=== PATIENT | female | born 1980 | race Caucasian/White ===

== ENCOUNTER 2020-02-17 10:26 | Outpatient (REF) | payer OTHER, SELFPAY | END 2020-02-17 10:27 | disposition home or self-care (01) | LOC: HO.LAB 10:26 | PROVIDERS: Visit Provider Internal Medicine | DX: Z20.828 Contact with and (suspected) exposure to other viral communicable diseases (principal) | CPT/HCPCS: 87635 ==

== ENCOUNTER 2020-04-17 13:16 | Outpatient (REF) | payer OTHER, SELFPAY ==
[2020-04-17 13:38] LABS: COVID-19 Test Negative (Negative)
== END 2020-04-17 13:17 | disposition home or self-care (01) ==
LOC: HO.EMPCOV 13:16
PROVIDERS: Visit Provider Internal Medicine
DX: Z20.828 Contact with and (suspected) exposure to other viral communicable diseases (principal)
CPT/HCPCS: 87635; C9803

== ENCOUNTER 2020-10-08 22:59 | Emergency (ER) | payer OTHER, SELFPAY ==
[2020-10-08 23:32] VITALS: BP 115/85; PULSE 112; RESP 16; TEMP 36.8; O2SAT 97; BMI 27.1
--- NOTE | 2020-10-09 01:16 | ED_ITS ---
HPI - Wound/Laceration General Chief Complaint: Wound/Laceration Stated Complaint: finger lac Time Seen by Provider: 10/08/20 23:19 Source: patient Mode of arrival: ambulatory Limitations: no limitations History of Present Illness HPI narrative: Patient got a laceration to her left thumb and ring finger by the knife while cutting squash at home no other injuries Related Data Allergies Allergy/AdvReac Type Severity Reaction Status Date / Time No Known Allergies Allergy Unverified 01/19/20 17:09 Review of Systems Review of Systems: Yes all other systems are reviewed and are negative [facility] Social History Social History Advance Directives: No Advance Directives Information Provided: No Patient : No Physical Exam Vital Signs: Vital Signs: Last Vital Signs Temp 98.2 F 10/08/20 23:32 Pulse 112 H 10/08/20 23:32 Resp 16 10/08/20 23:32 BP 115/85 10/08/20 23:32 Pulse Ox 97 10/08/20 23:32 Body Mass Index 27.1 Const: General: comfortable and no acute distress Extrem: Hand/finger images: 1. 2 cm curved laceration with flap at tip of rig ht 4th finger neurovascular intact 2. Superficial linear laceration at the tip of right thumb Procedures Laceration Laceration 1: Site: hand Side (If applicable): right (Fourth finger) Size (cm): 2 Description: flap Depth: simple, single layer Local Anesthetic: lidocaine 2% Amount of anesthesia used (mL): 1 Skin layer closed with: nylon and vicryl Size (cm): 6-0 Number of sutures: 8 Technique: simple, interrupted Laceration 2: Site: hand Side (If applicable): right (Thumb) Size (cm): 0.5 Description: linear Depth: simple, single layer Local Anesthetic: lidocaine 1% Amount of anesthesia used (mL): 0.5 Skin layer closed with: nylon Size (cm): 6-0 Number of sutures: 4 Discharge Plan Discharge Clinical Impression: Laceration Patient Disposition: Home, Self-Care Instructions: Finger Laceration (ED) Additional Instructions: Local care as advised Suture removal in 1 week Interventions: ED Discharge Assessment Last Done: 10/09/20 00:21 Discharge Date/Time: 10/09/20 00:23
== END 2020-10-09 00:23 | disposition home or self-care (01) ==
PROVIDERS: Emergency Provider Internal Medicine
DX: S61.011A Laceration without foreign body of right thumb without damage to nail, initial encounter (principal); S61.214A Laceration without foreign body of right ring finger without damage to nail, initial encounter; M79.641 Pain in right hand; W26.0XXA Contact with knife, initial encounter; Y93.G3 Activity, cooking and baking; Y92.000 Kitchen of unspecified non-institutional (private) residence as the place of occurrence of the external cause; Y99.9 Unspecified external cause status
CPT/HCPCS: 12001; 99283

== ENCOUNTER 2021-07-08 07:50 | Outpatient (REF) | payer OTHER, SELFPAY ==
[2021-07-08 08:52] LABS: COVID-19 Test Negative (Negative)
== END 2021-07-08 07:51 | disposition home or self-care (01) ==
LOC: HO.LAB 07:50
PROVIDERS: Visit Provider Internal Medicine
DX: Z20.822 Contact with and (suspected) exposure to COVID-19 (principal)
CPT/HCPCS: 87635; C9803

== ENCOUNTER 2022-02-04 13:20 | Outpatient (REF) | payer OTHER, SELFPAY ==
[2022-02-04 14:28] LABS: Troponin-I High Sensitivity < 3.5 ng/L (<3.5-17.0)
[2022-02-04 14:35] LABS: Alanine Aminotransferase 14 U/L (0-31); Albumin Level 4.2 g/dL (3.5-5.0); Alkaline Phosphatase 56 U/L (39-117); Anion Gap 13 (12-20); Aspartate Amino Transferase 16 U/L (5-31); Bilirubin Direct 0.2 mg/dL (0.0-0.5); Bilirubin Total 0.4 mg/dL (0.0-1.0); Blood Urea Nitrogen 9 mg/dL (9-16); Carbon Dioxide 28 mmol/L (22-29); Chloride 101 mmol/L (96-108); Estimated Glomerular Filt Rate > 60; Glucose Random 117 mg/dL (60-115); Lipase 21 U/L (8-78); Potassium 4.2 mmol/L (3.3-5.1); Sodium 138 mmol/L (135-145); Total Protein 6.9 g/dL (6.5-8.0)
[2022-02-04 14:44] LABS: Thyroid Stimulating Hormone 0.55 uIU/mL (0.32-4.0)
== END 2022-02-04 13:21 | disposition home or self-care (01) ==
LOC: HO.LAB 13:20
PROVIDERS: Visit Provider Hospitalist
DX: R10.9 Unspecified abdominal pain (principal)
CPT/HCPCS: 36415; 80048; 80076; 83690; 84443; 84484

== ENCOUNTER 2023-07-07 07:19 | Outpatient (REF) | payer OTHER, SELFPAY ==
[2023-07-07 07:33] LABS: MANUAL DIFF FLAG NO
[2023-07-07 07:51] LABS: Basophils Percent Auto 0.5 % (0-2); Eosinophils Absolute Auto 0.3 X10*3/uL (0.0-0.4); Hematocrit 42.2 % (37.0-47.0); Hemoglobin 14.8 g/dl (12.0-16.0); Imm Gran Abs Auto 0.02 X10*3/uL (0.00-0.03); Imm Gran Pct Auto 0.3 % (0.0-0.4); Lymphocytes Percent Auto 15.2 % (20-40); Mean Corpuscular HGB Conc 35.1 g/dl (31.0-35.0); Mean Corpuscular Hemoglobin 31.4 pg (27.0-33.0); Mean Corpuscular Volume 89.4 fL (80.0-98.0); Mean Platelet Volume 9.9 fL (9.4-12.3); Monocytes Absolute Auto 0.4 X10*3/uL (0.1-1.2); Monocytes Percent Auto 5.5 % (2-11); Neutrophils Absolute Auto 4.9 x10*3/uL (2.0-8.3); Neutrophils Percent Auto 74.5 % (45-73); Platelet Count 209 X10*3/uL (160-400); Red Blood Count 4.72 X10*6/uL (4.20-5.50); Red Cell Distribution Width 11.9 % (11.0-16.0); White Blood Count 6.5 X10*3/uL (4.8-10.8)
[2023-07-07 08:05] LABS: Estimated Average Glucose 97 mg/dL
[2023-07-07 08:17] LABS: Alanine Aminotransferase 16 U/L (0-31); Albumin Level 4.3 g/dL (3.5-5.0); Alkaline Phosphatase 53 U/L (39-117); Anion Gap 10 (12-20); Aspartate Amino Transferase 18 U/L (5-31); Bilirubin Total 0.6 mg/dL (0.0-1.0); Blood Urea Nitrogen 8 mg/dL (9-16); Calcium 9.8 mg/dL (8.4-10.2); Carbon Dioxide 26 mmol/L (22-29); Chloride 107 mmol/L (96-108); Estimated Glomerular Filt Rate > 60; Glucose Random 95 mg/dL (60-115); Iron 149 mcg/dL (30-160); Magnesium 2.1 mg/dL (1.6-2.6); Percent Iron Saturation 50 % (15-50); Potassium 4.3 mmol/L (3.3-5.1); Sodium 139 mmol/L (135-145); Total Iron Binding Capacity 300 mcg/dL (228-428); Total Protein 7.4 g/dL (6.5-8.0); Unsaturated Iron Binding 151 ug/dL
[2023-07-07 08:26] LABS: Cortisol Random 14.4 ug/dL
[2023-07-07 08:27] LABS: Thyroid Stimulating Hormone 1.04 uIU/mL (0.32-4.0); Vitamin D 25-OH Total 9.1 ng/mL (>30)
== END 2023-07-07 07:20 | disposition home or self-care (01) ==
LOC: HO.LAB 07:19
PROVIDERS: PCP Internal Medicine; Visit Provider Hospitalist
DX: Z00.00 Encounter for general adult medical examination without abnormal findings (principal)
CPT/HCPCS: 36415; 80053; 82306; 82533; 83036; 83540; 83735; 84443; 85025

== ENCOUNTER 2023-09-22 10:17 | Outpatient (REF) | payer OTHER, SELFPAY ==
--- NOTE | ~2023-09-22 | XR_ITS ---
EXAMINATION: XR CHEST CLINICAL INFORMATION: Cough COMPARISON: 11/24/2012 TECHNIQUE: 2 views of the chest were obtained. FINDINGS: No significant abnormality is noted involving the heart, lungs, mediastinum, or soft tissues. Pectus excavatum again noted. XR/XR chest 2V IMPRESSION: No acute cardiopulmonary disease or interval change
== END 2023-09-22 10:18 | disposition home or self-care (01) ==
LOC: HO.XRAY 10:17
PROVIDERS: Visit Provider Internal Medicine
DX: R05.9 Cough, unspecified (principal)
CPT/HCPCS: 71046

== ENCOUNTER 2025-02-27 11:55 | Outpatient (REF) | payer OTHER, SELFPAY ==
--- NOTE | ~2025-02-27 | XR_ITS ---
EXAMINATION: XR CHEST CLINICAL INFORMATION: COUGH COMPARISON: September 22, 2023 TECHNIQUE: 2 views of the chest were obtained. FINDINGS: No significant abnormality is noted involving the heart, lungs, mediastinum, or soft tissues. Again noted is pectus excavatum. XR/XR chest 2V IMPRESSION: Unremarkable examination. Electronically signed by: Demario Holland MD 02/27/2025 12:15 PM EDT
--- OUTSIDE RECORDS SUMMARY | 2025-02-27 15:22 | XMS_ITS | Clinical Summary ---
Author Organization [facility] Address [address] [address] Phone Care Team Providers Care Cilnical Scientist Name Role Phone Stephen Weber MD Primary Care Provider [phone] Allergies No known active allergies Medications citalopram (CELEXA) 20 MG tablet Take 1 tablet by mouth daily. Active cholecalciferol (VITAMIN D3) 2,000 unit capsule Take 1 capsule (2,000 Units total) by mouth daily. 90 capsule 3 07/23/2023 Active ALPRAZolam (XANAX) 0.5 MG tabletIndicatio ns:Anxiety Take 1 tablet (0.5 mg total) by mouth daily as needed. 10 tablet 07/23/2023 Active Active Problems Problem Noted Date Diagnosed Date Vitamin D deficiency 07/23/2023 Overview (07/23/2023): Now on VItD 50K weekly. Other melanin hyperpigmentation 12/08/2019 Assessment & Plan (12/08/2019 10:55 AM EDT): Pt unhappy with hyperpigmentation of her skin medial thighs to inguinal folds. Has used hydroquinone cream bid in the past with good results and would like to resume. Skin is otherwise not causing pt any sx. Family history of breast cancer 12/08/2019 Overview (01/09/2021): Mother dx 2019 age 60 Stage 0. Assessment & Plan (12/08/2019 10:59 AM EDT): Pt desires BRCA testing. Discussed making appt at [facility] breast center for genetic counseling. Pt has mammo's through [facility] and mother had breast ca treatment there. May consider appt together with mother to review risks and testing options. Tobacco dependence 12/02/2019 Overview (05/10/2021): The patient was counseled regarding tobacco cessation strategies. Medication management was also discussed, as well as risks of continued use. Try lozenges again, consider hypnosis May 2021: has cut down a lot, counselled for 4 min Assessment & Plan (07/23/2023 11:03 AM EDT): Working on cutting down still Assessment & Plan (01/02/2023 2:46 PM EDT): 1/2 ppd Declines rx or referral Assessment & Plan (08/21/2022 10:11 AM EDT): Plans to stop, declines rx. Stopping will help her HR issues Assessment & Plan (08/14/2022 2:00 PM EDT): Interested in quitting, plans to stop as she is anxious about using medication to help. Thinks she will quit sometime in the next year. Hyperhidrosis 12/02/2019 Overview (12/02/2019): Since childhood, face, hands, feet Mixed hyperlipidemia 12/02/2019 Overview (12/02/2019): LDL 135-150 Tachycardia 08/05/2018 Overview (05/10/2021): chronic tachycardia, had evaluation with Echo, holter, TSH at [facility] [around 2004] May 2021: Sx worsening, recheck 48 hr holter. History of measles vaccination 08/05/2018 Overview (08/05/2018): Did not generate antibodies, recheck Anxiety 07/30/2017 Overview (07/23/2023): Stable on celexa. Only needs xanax once every week or two. May 2021: Increase to 30mg celexa, trying to find a therapist. July 2023: back no Celexa, has prn xanax. Sees a psychiatrist next week. Sx are bad at the moment Assessment & Plan (01/02/2023 2:42 PM EDT): weaned off her celexa again, 'it was horrible'. Now doing ok Anxiety is still there, but mild. No major panic attacks. Stopped seeing her therapist. Has insomnia, some restless leg sx. Resolved Problems Problem Noted Date Diagnosed Date Resolved Date Alcohol consumption heavy 05/10/2021 Overview (05/10/2021): May 2021: was up to 9-12 beers a night, now abstinent for 2 wks. rec'd therapy. Offered Naltrexone, she declines for now. Assessment & Plan (08/14/2022 1:59 PM EDT): Abstinent x2 months. Very happy with related changes. Feels positive and proud. Abnormal uterine bleeding 01/10/2021 Assessment & Plan (01/10/2021 10:30 AM EDT): Pt having increased staining and bleeding in week before menses 3-7 days. Pt states she had this years ago and it spontaneously resolved. Has been occurring over last 3-6 mos. Pt to monitor sx and f/u in 3mos. D/w pt use of ocp may be helpful for this BTB. If bleeding is more sporadic and unpredictable and ultrasound may be warranted. PCB (post coital bleeding) 12/08/2019 0 08/14/2022 Assessment & Plan (01/10/2021 10:30 AM EDT): Cervix appears cystic. There are no areas of friability. May be associated with position and depth of penetration. Patient to monitor if associated premenstrually with BTB. Assessment & Plan (12/08/2019 10:57 AM EDT): Exam of vag and cx normal. No areas of friability. Only assoc with one sex position and deep penetration. Suggested if staining bothersome to her she may need to avoid that position. Immunizations Immunization Administration Dates Next Due COVID-19 (Pre-02/23) Pfizer Vaccine, mRNA, PF 05/18/2020,04/24/2020 INFLUENZA, SPLIT VIRUS, TRIV ALENT W/ PRESERVATIVE IM 03/24/2016 Influenza Quadrivalent Prese rvative Free IM 04/09/2022,02/05/2021,01/31/2020,2018,02/23/2018 Influenza Quadrivalent w/ Preservative IM 02/02/2018,02/16/2017 Td (adult),2 Lf Tetanus Toxo id, PF, Adsorbed 08/06/2011 Family History Medical History Relation Comments Asthma Brother No Known Problems Father doesn't know h is health hx Breast cancer Maternal Aunt doing well. Parkinson's disease Maternal Grandmother Breast cancer Mother 2018 - doing wel l at 5yrs out. Stage 0. Fibroids Mother had hyst Asthma Sister Asperger's syndrome Son 1 high functio carlos. Colon cancer Neg Hx Relation Status Comments Brother Alive Daughter 1 Alive Daughter 2 Alive Daughter 3 Alive Father Alive Maternal Aunt Alive Maternal Grandfather Alive Maternal Grandmother Mother Alive Sister Alive Son 1 Alive Son 2 Alive Social History Tobacco Use Types Packs/Day Years Used Date Smoking Tobacco: Every Day Cigarettes 0.5 30 Started: 08/05/2010 Smokeless Tobacco: Never Tobacco Cessation:Ready to Q uit: Not Asked; Counseling Given: Not Answered Alcohol Use Standard Drinks/Week Comments Not Currently 0 (1 standard drink = 0.6 oz pur e alcohol) Occasionally Child or Family Care Answer Date Record ed Do you have problems with on e of the following making it difficult for you to work, study, or receive health care? No 01/01/2023 Education Answer Date Recorded Are you interested in more education? Not on christel e 01/02/2025 Are you concerned about learning? Not on file 01/02/2025 No 01/02/2025 No 01/02/2025 Food Answer Date Recorded Within the past 6 months we worried whether our food would run out before we got money to buy more. Never True 01/01/2023 Within the past 6 months the food we bought just didn't last and we didn't have enough money to get more. Never True Residential Stability Answer Date Recor ded What is your housing situation today? I have lawrence mcnally 01/01/2023 How many times have you move d in the past 12 months? Zero (I did not move) 01/01/2023 Paying for Meds Answer Date Recorded Do you have trouble paying for medicines? No 01/01/2023 Paying Utility Bills Answer Date Record ed Do you have trouble paying your heating or elect ricity bill? No 01/01/2023 Transportation Answer Date Recorded Has the lack of transportati on kept you from medical appointments or from getting medications? No 01/01/2023 Unemployment Answer Date Recorded Are you currently unemployed or working on a part-time or temporary basis, and looking for work? No 01/01/2023 Digital Access Answer Date Recorded No 01/02/2025 No 01/02/2025 Reliable internet access at home? Not on file 01/02/2025 Device with a working camera? Not on file Intimate Partner Violence Answer Date R ecorded Denied Basic Needs Not on file 01/01/2023 In the past 12 months have y ou been in a relationship with a person who hurts, threatens, or tries to control you? No 01/01/2023 Worried food would run out Not on file 01/01 In the past 12 months have y ou been in a relationship with a person who hurts, threatens, or tries to control you? No 01/01/2023 Education Answer Date Recorded What is the highest level of school you have completed or the highest degree you have received? 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 file Not on file Not on fi le Last Filed Vital Signs Vital Sign Reading Time Taken Comments Blood Pressure 116/70 07/23/2023 10:29 AM EDT Pulse 111 07/23/2023 10:29 AM EDT Temperature 36.3 C (97.4 F) 07/23/2023 10:29 AM EDT Respiratory Rate - - Oxygen Saturation 99% 07/23/2023 10:29 AM EDT Inhaled Oxygen Concentration - - Weight 68.9 kg (152 lb) 07/23/2023 10:29 AM EDT Height 162.6 cm (5' 4.02 ) 07/23/2023 10:29 AM E DT Body Mass Index 26.07 07/23/2023 10:29 AM EDT Plan of Treatment Upcoming Encounters Date Type Department Care Team (Late st Contact Info) Description 06/23/2025 11:00 AM EST Office Visit [facility] [address] [place] [address] [place] [address] Stephen Weber MD [address] [facility], [address] [place] [address] [email or web address] Health Maintenance Due Date Last Done Comments SMOKING Hx and SMOKELESS TOBACCO SCREENING 07/12/1992 PNEUMOCOCCAL VACCINES (0-49 years) (1 of 2 - PCV) 07/12/1998 Adult Td,Tdap Booster 08/05/2021 08/06/2011 PAP SMEAR 08/12/2023 08/11/2018, 08/02, 11/08/2012, Additional history exists DEPRESSION SCREENING 01/02/2024 01/01/2023 COLOGUARD 07/12/2024 COLONOSCOPY 07/12/2024 COLORECTAL CANCER SCREENING 07/12/2024 FIT TEST 07/12/2024 FOBT 07/12/2024 SIGMOIDOSCOPY 07/12/2024 VIRTUAL COLONOSCOPY 07/12/2024 INFLUENZA VACCINE (#1) 2024 2, 02/05/2021, 01/31/2020, Additional history exists COVID-19 VACCINE ( - season) 2025 05/18/2020, 04/24/2020 MAMMOGRAM 05/03/2025 05/03/2024, 04/04, 02/28/2022, Additional history exists SCREENING FOR DIABETES 01/01/2026 01/01/2023, 2022 LIPID PANEL 01/02/2028 01/01/2023, 01/2021, 12/02/2019, Additional history exists HEPATITIS C SCREENING Completed 01/10/2021 HIV ONE-TIME SCREENING (18-65 YEARS) Completed 01/10/2021 HEPATITIS A VACCINES Aged Out No long er eligible based on patient's age to complete this topic HIB VACCINES Aged Out No longer eligi ble based on patient's age to complete this topic MENINGOCOCCAL VACCINES (ACWY) Aged Out No longer eligible based on patient's age to complete this topic MENINGOCOCCAL VACCINES (B) Aged Out N o longer eligible based on patient's age to complete this topic Medical Devices Not on file Procedures Procedure Name Priority Date/Time Associated Diagnosis Comments MAMMOGRAPHY Routine 05/03/2024 4:15 PM EST LIPID PANEL Routine 01/01/2023 10:17 AM EDT Annual physical exam HEPATITIS C ANTIBODY, QUALITATIVE Routine 01/10/2021 9:36 AM EDT Need for hepatitis C screening test PAP TEST Routine 08/11/2018 12:00 AM EDT from Last 3 Months or Most Recently Relevant to Health Maintenance Results * MAMMOGRAPHY FOR RESULT ENTRY ONLY (05/03/2024 4:15 PM EST) us Stephen Weber MD HEALTH MAINTENANCE Edited Resul t - Final * (ABNORMAL) Lipid panel (01/01/2023 10:17 AM EDT) HDL 45 mg/dL [facility] Comment: Interpretation <40 mg/dL: Low HDL cholesterol (major risk factor for CHD) Greater than or equal to 60 mg/dL: High HDL cholesterol ( negative risk factor for CHD) HDL - cholesterol is affected by a number of factors, e.g. smoking, excerise, hormones, sex and age. CHOLESTEROL 199 0 - 240 mg/dL [facility] TRIGLYCERIDES 164(H) 30 - 160 mg/dL [facility] LDL 121 50 - 129 mg/dL [facility] Comment: LDL levels in terms of risk for coronary heart disease: <100 mg/dL: Optimal 100-129 mg/dL: Near or above optimal 130-159 mg/dL: Borderline high 160-189 mg/dL: High >190 mg/dL: Very High CARDIAC RISK RATIO 4.4 3.3 - 4.4 C [facility] Blood 01/01/2023 10:1 7 AM EDT 01/01/2023 10:24 AM EDT us Stephen Weber MD LAB BLOOD ORDERABLES Final Resu lt Performing Organization Address [facility] Co de Phone Number [address] [address] * Hepatitis C antibody, qualitative (01/10/2021 9:36 AM EDT) HCV NON-REACTIV E NON-REACTI VE [facility] Blood 01/10/2021 9:36 AM EDT 01/10/2021 9:38 AM EDT us Stephen Weber MD LAB BLOOD ORDERABLES Final Resu lt Performing Organization Address [facility] Co de Phone Number [address] [address] * Pap Smear (08/11/2018 12:00 AM EDT) 08/11/2018 08/12/2018 12: 46 PM EDT Narrative SEE NARRATIVE - 08/19/2018 2:17 PM EDT [address] [address] Experimental Preflight Mechanic: Nara Truong MD MENTAL HEALTH ASSISTANT Cytology Report FINAL DIAGNOSIS A. PAP SMEAR (SUREPATH) CE: SPECIMEN ADEQUACY: Satisfactory for evaluation; transformation zone present. INTERPRETATION: NEGATIVE FOR INTRAEPITHELIAL LESION OR MALIGNANCY. Reactive changes. Electronically Signed Out By: FRANKLYN Avina MD(ASCP) By his/her signature above, the pathologist listed as making the Final Diagnosis certifies that he/she has personally reviewed this case and confirmed or corrected the diagnosis. The Pap test is a screening test primarily for squamous cancers and precursors and has associated false-negative and false-positive results. New technologies such as liquid-based preparations may decrease but will not eliminate all false-negative results. Regular sampling and follow-up of unexplained clinical signs and symptoms are recommended to minimize false negative results. PROCEDURES/ADDENDA HPV Testing (Requested) Ordered Date: 08/12/2018 HPV Test Negative for high-risk human papillomavirus types 16, 18, 45 and the Other high risk probe set (Includes 31, 33, 35, 39, 51, 52, 56, 58, 59, 66, 68) by WSO2 Onclarity HR-HPV analysis. Clinical correlation is advised. This HPV test was performed at [facility], [address] [place] [address]. This test has been FDA approved for [facility] cervical cytology specimens. The accuracy and precision of this test for all other specimen sources has been verified in the Cytopathology Laboratory of the [facility] and has not been cleared or approved by the U.S. Food and Drug Administration. Clinical correlation is advised. CLINICAL HISTORY Date of Last Menstrual Period: 08/05/2018 Other Clinical Conditions: Screening Pap SPECIMEN SOURCE A: PAP SMEAR (SUREPATH) CE Patient Name: TSERING ABBOTT : 1980 (Age: 38) Sex: F Institution: [facility] Location: [facility] Date of Collection: 08/11/2018 Date of Reported: 08/19/2018 14:17 Results to: Vanessa Vu MD Vanessa Vu MD CYTOLOGY ORDERABLES Final Result SEE NARRATIVE from Last 3 Months or Most Recently Relevant to Health Maintenance Insurance [facility] [address] [address] [id number] [employer] [address] [address] [address] [place] [address] [employer] [place] [id number] [place] [address] [facility] [employer] [address] [place] [address] [facility] [employer] [place] [id number] [place] [address] [facility] [employer] [facility] [employer] [place] [employer] Care Teams Cilnical Scientist Relationship Specialty Start Date End Date Stephen Weber MD [address] [place] [address], [address] [place] [address] [email or web address] PCP - General Internal Medicine 07/27/18 Additional Source Comments The information contained in this document represents components of the legal health record. It is not the complete legal health record.[facility]
[2025-02-27 15:41] LABS: MANUAL DIFF FLAG NO
[2025-02-27 15:56] LABS: Hematocrit 40.1 % (37.0-47.0); Hemoglobin 13.7 g/dl (12.0-16.0); Imm Gran Abs Auto 0.02 X10*3/uL (0.00-0.03); Imm Gran Pct Auto 0.3 % (0.0-0.4); Lymphocytes Absolute Auto 1.2 X10*3/uL (1.2-4.9); Mean Corpuscular HGB Conc 34.2 g/dl (31.0-35.0); Mean Corpuscular Hemoglobin 31.9 pg (27.0-33.0); Mean Corpuscular Volume 93.3 fL (80.0-98.0); NRBC Abs Auto 0.000 X10*3/uL (0.0-0.012); NRBC Pct Auto 0.0 /100WBC (0.0-0.2); Platelet Count 248 X10*3/uL (160-400); Red Blood Count 4.30 X10*6/uL (4.20-5.50); White Blood Count 7.8 X10*3/uL (4.8-10.8)
[2025-02-27 16:23] LABS: Alanine Aminotransferase 39 U/L (0-31); Albumin Level 4.6 g/dL (3.5-5.0); Alkaline Phosphatase 63 U/L (39-117); Anion Gap 13 (12-20); Aspartate Amino Transferase 33 U/L (5-31); Blood Urea Nitrogen 13 mg/dL (9-16); Calcium 9.4 mg/dL (8.4-10.2); Carbon Dioxide 27 mmol/L (22-29); Chloride 105 mmol/L (96-108); Estimated Glomerular Filt Rate > 60; Potassium 4.4 mmol/L (3.3-5.1); Sodium 141 mmol/L (135-145); Total Protein 7.6 g/dL (6.5-8.0)
== END 2025-02-27 11:56 | disposition home or self-care (01) ==
LOC: HO.XRAY 11:55
PROVIDERS: PCP Internal Medicine; Visit Provider Internal Medicine
DX: R05.9 Cough, unspecified (principal)
CPT/HCPCS: 36415; 71046; 80053; 82248; 85025

== ENCOUNTER → 2025-02-27 12:01 | Outpatient (BNV) | payer OTHER, SELFPAY | PROVIDERS: PCP Internal Medicine; Visit Provider Radiology Diagnostic Radiology | DX: R05.9 Cough, unspecified (principal) | CPT/HCPCS: 71046 ==

== ENCOUNTER 2025-04-29 17:25 | Emergency (ER) | payer OTHER, SELFPAY ==
--- NOTE | ~2025-04-29 | CT_ITS ---
CLINICAL HISTORY: back pain --- Additional Notes or Special Instructions: Pay attention to lumbar spine CT abdomen and pelvis without contrast Comparison: None provided Findings: No consolidation or effusion. Unremarkable gallbladder and solid organs. No urolithiasis. No bowel obstruction, pneumoperitoneum, or pneumatosis. Pelvic contents unremarkable. Normal appendix. The bones are intact. Paragraph of the cervix demonstrates left of midline heterogeneous low-attenuation lesion, 0.9 cm; probable nabothian cyst. L5-S1: Grade 1 retrolisthesis of L5 over S1. Broad-based disc bulge impinging of the S1 nerve roots, axial image number 456 of 747 series 4 with minimal central canal stenosis and no significant neural foraminal stenosis. IMPRESSION: No acute findings. This document has been electronically signed by: Jacob Carreon MD on 04/29/2025 19:21:19
[2025-04-29 17:28] VITALS: BP 155/88; PULSE 107; RESP 18; TEMP 36.8; O2SAT 99; BMI 30.6
--- NOTE | 2025-04-29 17:50 | ED.GENADULT ---
HPI - General Adult General Chief complaint: Back Pain/Injury Stated complaint: Back pain Time Seen by Provider: 04/29/25 17:48 Source: patient Mode of arrival: ambulatory Limitations: no limitations History of Present Illness ED Provider: Dr. Lazo [facility] narrative: 44-year-old female no significant medical history presented hospital today for back pain for the past 2 weeks. It is atraumatic in nature. Described as a bilateral back pain that radiates down to her left thigh. Denies any urinary retention no bowel incontinence. No saddle paresthesia. Denies any traumatic injuries. No abdominal pain. Related Data Previous Rx's ?Medication ?Instructions ?Recorded acetaminophen 500 mg tablet 1,000 mg (2 x 500 mg) PO Q8H 10 04/29/25 days #60 tabs cyclobenzaprine 5 mg tablet 5 mg PO TID PRN muscle spasm #21 04/29/25 tabs methylprednisolone 4 mg tablets in 4 mg PO PER PKG DIR #21 ea 04/29/25 a dose pack (Medrol (Naun)) Allergies Allergy/AdvReac Type Severity Reaction Status Date / Time No Known Allergies Allergy Verified 04/29/25 17:31 Review of Systems Review of Systems: Pertinent review of systems as mentioned in HPI. All other system otherwise negative. [facility] Past Medical History [facility] Narrative: None Social History Social History Advance Directives: No Advance Directives Information Provided: No Do you have a plan to hurt others: No Plan Physical Exam ED Exam Exam: General: Pleasant, no distress, interacting appropriately Head: Normacephalic, atraumatic ENT: oral mucosa moist, neck supple, no tracheal deviation Extremities: No tenderness on internal rotation of bilateral hips, palpable pulse and dorsal pedis bilaterally, CMS intact bilaterally, she has bilateral tenderness on the lower spine Neurological: Awake and alert, no facial droop noted Skin: Warm and dry Psychiatric: Appropriate mood and thoughts Vital Signs: Vital Signs - 24 hr 04/29/25 17:28 04/29/25 19:10 Temperature 98.2 F 98.2 F Pulse Rate 107 H 107 H Respiratory Rate 18 18 Blood Pressure 155/88 H 155/88 H Pulse Oximetry 99 99 Oxygen Delivery Method Room Air Room Air BMI result Body Mass Index 30.6 Medications Administered Discontinued Medications Generic Name Dose Route Start Last Admin Trade Name Freq PRN Reason Stop Dose Admin Ibuprofen 800 mg 04/29/25 17:49 04/29/25 18:19 Ibuprofen 800 Mg Tablet PO 04/29/25 17:50 800 mg ONCE ONE Administration Medical Decision Making Medical Decision Making [facility] Narrative: 44-year-old female presented hospital today for 2 weeks of lower back pain. No red flag symptoms. We will obtain a CT imaging. Discussed the patient about her workup. She will prefer to started ibuprofen 1st for pain control. She has been taking ibuprofen and NSAIDs for pain control. With minimal relief. Her pain is improved when she stands up worsened when she sits down. I suspect lumbar radiculopathy versus muscular strain of the lumbar spine. The patient positioned on comfort is forward flexion of the lumbar spine it is more painful when she rotates her spine. Patient's condition is requesting to go home at this time. CT imaging is still pending. We will plan to discharge patient with a Medrol Dosepak, cyclobenzaprine and referral to physical therapy. Discuss patient about CT results. Patient will plan to follow up in clinic. Differential Diagnosis Differential Diagnoses: The differential diagnosis associated with the presentation includes Lumbar radiculopathy, lumbar strain, thoracic strain Lab Data [facility] Lab Attestation statement: I reviewed the patient's lab results. Labs: Lab Results 04/29/25 Range/Units 18:18 Urine Test NEGATIVE (NEGATIVE) Independent Interpretation I performed an independent interpretation of an: CT Scan Discharge Plan Discharge Clinical Impression: Low back pain Qualifiers: Chronicity: acute Back pain laterality: bilateral Sciatica presence: without sciatica Qualified Code(s): M54.50 - Low back pain, unspecified Patient Disposition: Home, Self-Care Instructions: Acute Low Back Pain (ED), Lower Back Exercises (ED) Additional Instructions: You may take 1000mg tylenol every 8 hours, take the cyclobenzaprine as needed. Follow instruction on the medrol dose back. I gave you referral to physical therapy that you can follow up with. You may use warm compression and stretch when possible. Avoid any further strenuous movements. Prescriptions: New methylprednisolone [Medrol (Naun)] 4 mg tablets,dose pack 4 mg PO PER PKG DIR Qty: 21 0RF acetaminophen 500 mg tablet 1,000 mg PO Q8H 10 Days Qty: 60 0RF cyclobenzaprine 5 mg tablet 5 mg PO TID PRN (Reason: muscle spasm) Qty: 21 0RF Referrals: Physical Therapy - [facility] [Outside] Interventions: ED Discharge Assessment Last Done: 04/29/25 19:10 Discharge Date/Time: 04/29/25 19:10 Print Language: Korean
--- OUTSIDE RECORDS SUMMARY | 2025-04-29 17:59 | XMS_ITS | Data Portability ---
Author Organization [facility], Main Office Address [address] [facility] [address] [place] [address] Care Team Providers Care Mechanical Engineering Lecturer Name Role Phone KENRICK ORTIZ Primary Care Provider [facility] Integrity Consultant [facility] OTHER Assessment No assessment recorded. Plan of Treatment Reminders Order Date Submit Date Provider Last Modified By Organization Details Last Modified Time Details Appointments None record ed. Lab None record ed. Referral None record ed. Procedures None record ed. Surgeries None record ed. Imaging None record ed. Medication Orders None record ed. Patient TargetsNo targets recorded. Patient Instructions Encounter Date Encounter Id Patient Instructions Last Modified By Organization Details Last Modified Time 07/29/2017 [id number] Medications (OTC, herbal therapies, supplements) reviewed and reconciled with patient and or caregiver, including potential side effects, drug interactions, instructions, and the consequences of not taking medication. Reviewed potential barriers to medication adherence, such as side effects from medication or cost of medication. [email or web address] Not available 07/30/2017 06:48:45 Reason for Referral None Reported. Problems Name Problem SNOMED Code Status Onset Date Resolution Date Notes Provider Name and Address Organization Details Recorded Time Anxiety 58872454 Active 018 Kenrick Ortiz MD [address], [place], [address] , [facility] 07/30/2017 06:47:37 Problem Notes None recorded. Procedures Surgical History Date Name Laterality Status Provider Name and Address Organization Details Recorded Time 2 delivery completed Beau Hong [facility] 07/29/2017 13:38:28 Imaging Results None recorded. Procedure Notes None recorded. Medical Equipment None Reported. Allergies No known drug allergies Medications Name Sig Start Date Stop Date Status Note LastModified by Organization Details LastModified Time metronidazol e 0.75 % (37.5 mg/5 gram) vaginal gel active Not Available Not Available Not Available sulfamethoxa zole 800 mg-trimethop rim 160 mg tablet 07/29 completed Not Available Not Available Not Available alprazolam 0.5 mg tablet 1 as needed for anxiety with a max 3 per week active Not Available Not Available No t Available citalopram 20 mg tablet TAKE 1 TABLET BY MOUTH EVERY DAY active Not Available Not Available No t Available amoxicillin 875 mg-potassium clavulanate 125 mg tablet active Not Available Not Available Not Available Vitals Date Recorded Body weight Body mass index (BMI) Body height Heart rate Oxygen saturation Body temperature Systolic And Diastolic Provider Name and Address Organization Details Last Updated DateTime 8 32647.3 g 25.3 kg/m2 160.66 cm 86 /min 97 % 97.6 [degF] 116/70 mm[Hg] Beau Hong [facility] 8 13:34:30 Social History Question Answer Notes LastModified by Organizat ion Details LastModified Time Tobacco Smoking Status [facility]2017 13:37:09 Do You Have An Advance Directive? No [employer] Information not available 07/29/2017 Is Blood Transfusion Acceptable In An Emergency? Yes [facility] - [facility] [employer] Cases Liveabhijeet Information not available 07/29/2017 What Is Your Level Of Caffeine Consumption? Occasional [employer] Automationleisa Information not available 07/29/2017 How Much Tobacco Do You Chew? None CLK Design AutomationherbUrban Gentleman Information not available 07/29/2017 What Type Of Diet Are You Following? REGULAR [employer] Automationleisa Information not available 07/29/2017 Which Illicit Or Recreational Drugs Have You Used? None [employer] AutomationherbUrban Gentleman Information not available 07/29/2017 Live Alone Or With Others? With Others And 5 Children Born Between 1996 And 2011 [email or web address] Information not available 07/29/2017 Do You Take Precautions To Prevent Distracted Driving? Yes Essential Testingmadalyn Information not available 07/29/2017 How Often Do You Need To Have Someone Help You When You Read Instructions, Pamphlets, Or Other Written Material From Your Doctor Or Pharmacy? Never [employer] Information not available 07/29/2017 Have You Served In The ? No [employer] Information not available 07/29/2017 What Was The Date Of Your Most Recent Tobacco Screening? 07/29/2017 Information not available 11/25/2018 How Many Children Do You Have? 5 Essential TestingultzUrban Gentleman Information not available 07/29/2017 Do You Use Protection During Sex? No Essential Testingultzki Information not available 07/29/2017 Seat Belts Used Routinely Yes Essential TestingultGanymed Pharmaceuticals Information not available 07/29/2017 Are You Sexually Active? Yes [employer] Information not available 07/29/2017 Smoke Alarm In Home Yes [employer] Information not available 07/29/2017 At What Age Did You Start Smoking Tobacco? 12 Essential TestingultzUrban Gentleman Information not available 07/29/2017 Are You Passively Exposed To Smoke? Yes CLK [employer] AutomationzUrban Gentleman Information not available 07/29/2017 How Much Tobacco Do You Smoke? 0.25 PPD ksEmerge DiagnosticsultGanymed Pharmaceuticals Information not available 07/29/2017 Do You Use Sunscreen Routinely? Yes [employer] Information not available 07/29/2017 How Many Years Have You Smoked Tobacco? 12 Essential TestingultGanymed Pharmaceuticals Information not available 07/29/2017 Sex: Unknown Functional Status Question Answer Note LastModified by Organizat ion Details LastModified Time What is your level of alcohol consumption? Occasional Essential TestingultGanymed Pharmaceuticals Information not available 07/29/2017 Are you currently employed? Yes [employer] Information not available 07/29/2017 Are you able to care for yourself independently ? 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 Moderate [employer] Information not available 07/29/2017 Mental Status None recorded. Family History Relationship Description Onset Age of this Age Resolved Age Notes LastModified by Organization Details LastModified Time Mother Malignant neoplasm of breast 59 [email or web address] Not available 07/03 14:06:06 Maternal Grandfather Carcinoma of prostate [email or web address] Not available 07/03 14:06:48 Medical History No medical history recorded. Gynecological History Statement/Question Response Date of Last Pap Smear Obstetrics History GPAL:G 0 P 0 0 0 0 Past Encounters Encounter ID Performer Location Encounter Start Date Encounter Closed Date Diagnosis/Indication Diagnosis SNOMED-CT Code Diagnosis ICD10 Code Diagnosis IMO Codes Diagnosis Note [id number] Kenrick Ortiz MD Main Office [address] [phone] 07/29/2017 13:26:46 07/29/2017 14:24:55 Adult health examination 944299884 Z00.00 She will bring in documentat Departing for her Tdap. 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 Anxiety 10487049 F41.9 Continue current mgmt of citalopram daily and prn alprazolam . She is trying to wean off the alprazolam . Health Concerns Section Related Observation LastModified by Organization Detai ls LastModified Time None Recorded Concern Status LastModified by Organization Details LastModified Time None Recorded Advance Directives Directive N: Payers Insurance Date Sequence Insurance Name Policy Number Policy Del Cid Covered Member ID Del Cid Member ID Guarantor Name 08/05/2017 1 [facility] (PPO) [id number] Rupali Abbott [id number] Rupali Abbott Notes Date Note Type Note Provider Name and Address Organization Details Recorded Time 07/29/2017 text/html New patient transferring from Dr Jones. Only medical issue is anxiety which is being treated with citalopram daily and alprazolam when needed. Kenrick Ortiz MD [address] [address], [place], [address], [facility] 07/30/2017 07:02:53 OBGyn Episode No OBEpisode recorded.
--- OUTSIDE RECORDS SUMMARY | 2025-04-29 17:59 | XMS_ITS | Clinical Summary ---
Author Organization [facility] Address [address] [address] Phone Care Team Providers Care Newspaper Journalist Name Role Phone Stephen Weber MD Primary Care Provider [phone] Allergies No known active allergies Medications citalopram [...] desires BRCA testing. Discussed making appt at [facility] breast center for genetic counseling. Pt has mammo's through [facility] and mother had breast ca treatment there. [...] had evaluation with Echo, holter, TSH at [facility] [around 2004] May 2021: Sx worsening, recheck [...] she may need to avoid that position. Encounters Date Type Department Care Team Description 02/28/2025 Orders Only [facility] [address] [place] [address] Unknown, Unknown, from Last 3 Months Immunizations Immunization Administration Dates Next Due COVID-19 [...] your housing situation today? I have lawrence sing 01/01/2023 How many times have you move [...] Master's degree (e.g., MA, MS, Randa, MEd, DECISION SUPPORT ANALYST, DAGOBERTO) 08/11/2018 Comments No Sex and Gender [...] Description 06/23/2025 11:00 AM EST Office Visit [facility] [address] [place] [address] Stephen Weber MD [address] [place] [address], [address] [place], [place] [id number] [email or web address] Health Maintenance Due Date Last Done Comments [...] 01/31/2020, Additional history exists COVID-19 VACCINE ( season) 2025 05/18/2020, 04/24/2020 MAMMOGRAM 05/03/2025 05/03/2024, [...] Procedure Name Priority Date/Time Associated Diagnosis Comments OUTSIDE XR CHEST REPORT ONLY Routine 02/27/2025 11:58 AM EDT HM MAMMOGRAPHY Routine 05/03/2024 4:15 PM EST LIPID PANEL Routine 01/01/2023 10:17 AM EDT Annual physical exam HEPATITIS C ANTIBODY, QUALITATIVE Routine 01/10/2021 9:36 AM EDT Need for hepatitis C screening test PAP TEST Routine 08/11/2018 12:00 AM EDT from Last 3 Months or Most Recently Relevant to Health Maintenance Results * Outside XR??Chest Report Only (02/27/2025 11:58 AM EDT) us Unknown Unknown IMG XR CHEST Edited Result - Final * HM MAMMOGRAPHY FOR RESULT ENTRY ONLY (05/03/2024 4:15 PM EST) us Stephen Weber MD HEALTH MAINTENANCE Edited Resul t - Final * (ABNORMAL) Lipid panel (01/01/2023 10:17 AM EDT) HDL 45 mg/dL [facility] Comment: Interpretation <40 mg/dL: Low HDL cholesterol (major risk factor for CHD) Greater than or equal to 60 mg/dL: High HDL cholesterol ( negative risk factor for CHD) HDL - cholesterol is affected by a number of factors, e.g. smoking, excerise, hormones, sex and age. CHOLESTEROL 199 0 - 240 mg/dL [facility] TRIGLYCERIDES 164(H) 30 - 160 mg/dL [facility] LDL 121 50 - 129 mg/dL [facility] Comment: LDL levels in terms of risk for coronary heart disease: <100 mg/dL: Optimal 100-129 mg/dL: Near or above optimal 130-159 mg/dL: Borderline high 160-189 mg/dL: High >190 mg/dL: Very High CARDIAC RISK RATIO 4.4 3.3 - 4.4 C [facility] Blood 01/01/2023 10:1 7 AM EDT 01/01/2023 10:24 AM EDT us Stephen Weber MD LAB BLOOD BKR ORDERABLES Final Result Performing Organization Address [facility]/ZIP Co de Phone Number [address] [address] * Hepatitis C antibody, qualitative (01/10/2021 9:36 AM EDT) HCV NON-REACTIV E NON-REACTI VE [facility] Blood 01/10/2021 9:36 AM EDT 01/10/2021 9:38 AM EDT us Stephen Weber MD LAB BLOOD BKR ORDERABLES Final Result Performing Organization Address [facility] Co de Phone Number [address] [address] * Pap Smear (08/11/2018 12:00 AM EDT) 08/11/2018 08/12/2018 12: 46 PM EDT Narrative SEE NARRATIVE - 08/19/2018 2:17 PM EDT [address] [address] Cane Weigher: Nara Truong MD PIPE BENDER Cytology Report FINAL DIAGNOSIS A. PAP SMEAR [...] 52, 56, 58, 59, 66, 68) by [facility] HR-HPV analysis. Clinical correlation is advised. This HPV test was performed at [facility], [address] [place] [address]. This test has been FDA approved for [facility] cervical cytology specimens. The accuracy and precision of this test for all other specimen sources has been verified in the Cytopathology Laboratory of the [facility] and has not been cleared or approved by the U.S. Food and Drug Administration. Clinical correlation is advised. CLINICAL HISTORY Date of Last Menstrual Period: 08/05/2018 Other Clinical Conditions: Screening Pap SPECIMEN SOURCE A: PAP SMEAR (SUREPATH) CE Patient Name: RUPALI ABBOTT : 1980 (Age: 38) Sex: F Institution: [facility] Location: [facility] Date of Collection: 08/11/2018 Date of Reported: 08/19/2018 14:17 Results to: Vanessa Vu MD Vanessa Vu MD CYTOLOGY ORDERABLES Final Result SEE NARRATIVE from Last 3 Months or Most Recently Relevant to Health [place] [id number] [place] [place] [address] [place] [address] [place] [id number] [employer] [address] [place] [address] [place] [id number] [place] [id number] [facility] [address] [address] [facility] [employer] [address] [facility] [employer] Care Teams Newspaper Journalist Relationship Specialty Start Date End Date Stephen Weber MD [address] [place] [address] [address] [place] [address] [email or web address] PCP - General Internal Medicine 07/27/18 Additional Source Comments The information contained in this document represents components of the legal health record. It is not the complete legal health record.[facility]
[2025-04-29 18:30] LABS: UPreg QC Valid YES
[2025-04-29 19:10] VITALS: BP 155/88; PULSE 107; RESP 18; TEMP 36.8; O2SAT 99
== END 2025-04-29 19:10 | disposition home or self-care (01) ==
PROVIDERS: Emergency Provider Student in an Organized Health Care Education/Training Program; PCP Internal Medicine
DX: M54.50 Low back pain, unspecified (principal)
CPT/HCPCS: 74176; 81025; 99283; 99284

== ENCOUNTER → 2025-04-29 17:49 | Outpatient (BNV) | payer OTHER, SELFPAY | PROVIDERS: Emergency Provider Student in an Organized Health Care Education/Training Program; PCP Internal Medicine; Visit Provider Radiology Diagnostic Radiology | DX: M54.50 Low back pain, unspecified (principal) | CPT/HCPCS: 74176 ==